=== PATIENT | female | born 1960 | race Caucasian/White ===

== ENCOUNTER 2019-06-15 13:05 | Inpatient (IN) ==
[2019-06-15] MEDS ORDERED: ACETAMINOPHEN 325 MG TAB PO PRN (14:26)
--- NOTE | 2019-06-15 15:04 | XRay Report ---
XR chest 1V portable HISTORY: 58 years-old Female new admission COMPARISON: CT abdomen and pelvis 04/05/2019, chest radiograph 05/27/2006 TECHNIQUE: Portable AP view of the chest FINDINGS: Cardiomediastinal and hilar silhouettes are within normal limits. No pneumothorax, pleural effusion, focal airspace consolidation or overt pulmonary edema. Bones of the chest appear grossly intact. IMPRESSION: No acute process. The above report was generated using voice recognition software. It may contain grammatical, syntax o r spelling errors. Electronically signed by: Ron Bauer M.D. 06/15/2019 3:02 PM
[2019-06-15 15:22] LABS: Basophils # (auto) 0.03 K/uL (0-0.2); Basophils % (auto) 0.5 %; Eosinophils # (auto) 0.11 K/uL (0-0.5); Eosinophils % (auto) 1.7 %; Hematocrit (blood only) 41.5 % (37-47); Hemoglobin 13.9 g/dL (12.0-16.0); Immature Granulocytes # (auto) 0.01 K/uL (0.00-0.02); Immature Granulocytes % (auto) 0.2 %; Lymphocytes # (auto) 2.17 K/uL (1.2-3.4); Lymphocytes % (auto) 33.5 %; Mean Corpuscular Volume 90.4 fL (80-100); Mean Platelet Volume 10.6 fL (7.4-10.4); Monocytes # (auto) 0.39 K/uL (0.11-0.59); Neutrophils # (auto) 3.76 K/uL (1.4-6.5); Neutrophils % (auto) 58.1 %; Platelet Count 194 K/uL (130-400); RDW Coefficient of Variation 14.2 % (11.5-14.5); RDW Standard Deviation 46.7 fL (36.4-46.3); Red Blood Count 4.59 M/uL (4.2-5.4); White Blood Count 6.47 K/uL (4.8-10.8)
[2019-06-15 15:31] LABS: Mean Corpuscular Hgb Conc 33.5 g/dL (32-36)
[2019-06-15 15:39] LABS: Blood Urea Nitrogen 20 mg/dl (7-18); Calcium 9.4 mg/dl (8.5-10.1); Carbon Dioxide 27 mmol/L (21-32); Chloride 110 mmol/L (98-107); Est GFR (Non-African American) 66.4; Glucose 104 mg/dl (70-99); Potassium 3.6 mmol/L (3.5-5.1); Sodium 143 mmol/L (136-145)
[2019-06-15] MEDS ORDERED: VANCOMYCIN CONSULT ACTIVE PRN (15:48)
--- NOTE | 2019-06-15 16:00 | History & Physical Report ---
Date of Service June 15, 2019 Assessment & Plan (1) Recurrent UTI (urinary tract infection): (2) Multiple drug allergies: 58 yo F with PMHx of Asthma, HLD, IBS, and multiple drug allergies who presents today from home for IV antibiotics for Enterococcus UTI in recent outpatient urine culture which showed sensitivity to ampicillin, macrobid, and vancomycin, was resistant to tetracycline. Pt is allergic to both ampicillin and macrobid and so her PCP sent her to the hospital for a direct admission for IV vancomycin. She has a somewhat complicated recent PMHx in that in March she went for an outpatient hysteroscopy and had subsequent uterine wall perforation and retroperitoneal hematoma and was transferred to [facility] in [place] for an overnight stay. Since then she has felt intermittent dysuria, fevers, chills, fatigue and was treated 05/19/19 with Levaquin 500 mg daily for 7 days for sinusitis and UTI-- she reports this improved symptoms somewhat but was still having dysuria. Her urine culture at that time showed enterococcus species with same sensitive as above so after completing Levaquin her PCP put her on Macrobid. Unfortunately she was unable to tolerate the Macrobid as she had "rash/hives, trouble seeing, and pain in kidney area". She had a repeat urine culture 06/08/19 which again showed 10,000-100,000 colonies of the enterococcus species and her PCP asked her to be seen in the hospital for IV antibiotics. She refused initially so PCP made F/U with [employer] who confirmed her allergies to PCN, Ampicillin, Macrobid. Given this they highly recommended pt come to the hospital for IV vancomycin and she agreed. Pt reports she feels she has had this infection for the last two months and has had intermittent subjective fevers, chills, has been fatigued. Over the last two days has developed some dysuria and lower abdominal pain/suprapubic pain. She has still been able to go to work daily but feels more run down than usual. She denies active chest pain, SOB, headaches, fevers, chills, back or flank pain, diarrhea, constipation, hematuria. She also notes unrelated to her UTI symptoms a recurrent yeast rash under her R breast and around umbilicus-- she uses nystatin for this PRN at home. Denies additional complaints at this time. Afebrile, no leukocytosis, labs otherwise unremarkable. CXR: no acute process - Urine Culture: pending - Blood Cultures: pending - Start Vancomycin IV - Normal Diet - CBC, BMP AM labs - ID consulted-- spoke with Dr. Pardo, he will see patient (3) Yeast infection of the skin: - Mild, ok to use nystatin cream BID to affected areas under R breast and near umbilicus (4) Asthma: - Stable - Only requires albuterol if she comes into contact with allergens VTE Prophylaxis: Lovenox Pt follows with Dr. Garcia for routine care. Patient seen in coordination with Dr. Vargas. See addendum for further details. History of Present Illness Chief Complaint: UTI Primary Care Provider: Prema Garcia MD 58 yo F with PMHx of Asthma, HLD, IBS, and multiple drug allergies who presents today from home for IV antibiotics for Enterococcus UTI in recent outpatient urine culture which showed sensitivity to ampicillin, macrobid, and vancomycin, was resistant to tetracycline. Pt is allergic to both ampicillin and macrobid and so her PCP sent her to the hospital for a direct admission for IV vancomycin. She has a somewhat complicated recent PMHx in that in March she went for an outpatient hysteroscopy and had subsequent uterine wall perforation and retroperitoneal hematoma and was transferred to [facility] in [place] for an overnight stay. Since then she has felt intermittent dysuria, fevers, chills, fatigue and was treated 05/19/19 with Levaquin 500 mg daily for 7 days for sinusitis and UTI-- she reports this improved symptoms somewhat but was still having dysuria. Her urine culture at that time showed enterococcus species with same sensitive as above so after completing Levaquin her PCP put her on Macrobid. Unfortunately she was unable to tolerate the Macrobid as she had "rash/hives, trouble seeing, and pain in kidney area". She had a repeat urine culture 06/08/19 which again showed 10,000-100,000 colonies of the enterococcus species and her PCP asked her to be seen in the hospital for IV antibiotics. She refused initially so PCP made F/U with [employer] who confirmed her allergies to PCN, Ampicillin, Macrobid. Given this they highly recommended pt come to the hospital for IV vancomycin and she agreed. Pt reports she feels she has had this infection for the last two months and has had intermittent subjective fevers, chills, has been fatigued. Over the last two days has developed some dysuria and lower abdominal pain/suprapubic pain. She has still been able to go to work daily but feels more run down than usual. She denies active chest pain, SOB, headaches, fevers, c hills, back or flank pain, diarrhea, constipation, hematuria. She also notes unrelated to her UTI symptoms a recurrent yeast rash under her R breast and around umbilicus-- she uses nystatin for this PRN at home. Denies additional complaints at this time. Allergies Allergy/AdvReac Type Severity Reaction Status Date / Time aspirin Allergy Intermediate Vomiting Verified 04/05/19 12:57 Iodinated Contrast- Oral and Allergy Intermediate flushing Verified 06/15/19 14:44 IV Dye nitrofurantoin Allergy Intermediate Rash Verified 06/15/19 14:44 [From Macrobid] Penicillins Allergy Intermediate Unknown Verified 06/15/19 20:12 diphenhydramine Allergy Mild Rash Verified 06/15/19 14:44 omeprazole [From Prilosec] Allergy Mild Rash Verified 06/15/19 14:44 Cephalosporins Allergy Unknown Unknown Unverified 04/05/19 12:57 amoxicillin [From Augmentin] Allergy Flushing Verified 06/15/19 14:44 ampicillin Allergy Unknown Verified 06/15/19 20:12 clavulanic acid Allergy Flushing Verified 06/15/19 14:44 [From Augmentin] vancomycin Allergy Rash Verified 06/15/19 20:12 SULFA,RHINOCORT,CELEBREX,SINGULAIR,STEROIDS Allergy Unknown Unknown Uncoded 04/05/19 12:57 Home Medications Home Medications Medication Instructions Recorded Confirmed Type albuterol sulfate [ProAir HFA] 2 puff INHALATION Q4H PRN 06/15/19 06/15/19 History fluticasone propionate [Flonase 2 spray INTRANASAL DAILY 06/15/19 06/15/19 History Allergy Relief] nystatin 1 applic TOPICAL UD 06/15/19 06/15/19 History Past Med/Surg History Medical History DVT (deep venous thrombosis) (Resolved) Surgical History Hx of tonsillectomy (Resolved) Family History Other No significant family history Social History Communication Ability: Effective Valet Runner Required: No Beliefs That Will Affect Care: None marital status: Current Living Situation: Spouse and Family Current Living Situation Comment: recent surgery Other Information That Helps Us Care for You: No Feels Safe at Home: Yes Safety Concerns: Feels Safe At This Time Smoking Status: Former smoker Hx Alcohol Use: No Hx Substance Use: No Review of Systems Review of Systems: A total of 10 systems were reviewed and otherwise negative unless noted in the HPI or below: []. Physical Exam Physical Exam: GENERAL: alert, healthy, no distress, well nourished and well developed, resting comfortably in bed, speaking in full sentences without difficulty HEAD: Normocephalic, atraumatic EYES: PERRL, EOMI, Conjunctiva are pink and non-injected, sclera clear EARS: External ears normal, Canals clear, TM's clear with good cone of light NOSE: no purulent discharge, no sinus tenderness, no mucosal erythema or edema OROPHARYNX: no exudate, no erythema, lips, buccal mucosa, and tongue normal and mucous membranes are moist NECK: supple, no adenopathy HEART: regular rate & rhythm, no murmurs and no gallops, no edema LUNGS: clear to auscultation bilaterally, no wheezing, rales or rhonchi ABDOMEN: abdomen soft, normal bowel sounds, no masses or organomegaly, no rebound or guarding, no bladder distention identified and no bruits, + suprapubic tenderness, + R sided CVAT SKIN: skin color, texture, turgor are normal, mild erythematous patch under R breast and mild erythema near umbilicus, no drainage, bleeding, signs of secondary bacterial infection NEURO: alert & oriented x 3 with fluent speech, no focal motor/sensory deficits Results & Data Vital Signs (Past 12 Hours) Vital Signs Temp Pulse Resp BP Pulse Ox 06/15/19 15:13 37 C 93 H 18 156/97 H 95 Laboratory Results Short CBC 06/15/19 Range/Units 15:03 WBC 6.47 (4.8-10.8) K/uL Hgb 13.9 (12.0-16.0) g/dL Hct 41.5 (37-47) % Plt Count 194 (130-400) K/uL [facility] 06/15/19 15:03 Sodium 143 Potassium 3.6 Chloride 110 H Carbon Dioxide 27 BUN 20 H Creatinine 0.94 Glucose 104 H Calcium 9.4 Diagnostic Findings Chest Xray: No acute process ECG Rate (beats per minute): 88 Rhythm: normal sinus Code Status & VTE Plan Code Status FULL CODE VTE Prophylaxis Plan VTE Prophylaxis will be ordered: Yes Supervising Physician Co-Signing Physician Notes I have seen and examined the patient and have discussed the case with the provider above. I agree with the assessment and plan as stated with the following exceptions. 58 yo F with UTI symptoms for 1-2 months presents as a direct admission from the clinic. Workup has revealed enterococcus UTI, and she is unable to take multiple antibioitics secondary to allergies. Her deliverer food and PCP have recommended vancomycin so she was admitted for this today. She is not septic, but is still symptomatic with incomplete voiding and dysuria. She denies fevers but reports chills. She denies GI symptoms. She has been eating but has some nausea with it. Physical exam reveals a hemodynamically stable and afebrile patient in no acute distress. Skin is warm and dry. Heart and lung exam is normal. Abdomen exam reveals TTP in LLQ> suprapubic area and she has bilateral CVA tenderness. She is mentating clearly and ambulating independently. WBC is normal, kidney function is normal. A repeat UA/UCx has been ordered and blood cultures were ordered. Assessment: (1) acute pyelonephritis 2/2 enterococcus, (2) multiple drug allergies, (3) body candidiasis. Agree with plan to give vancomycin, however, she had a reaction after 125/500cc were infused which included red streaking down her forehead, rash on her cheeks, ears burning and head pruritis. The vanc was stopped, however, she declined any antihistamines again based on a prior drug reaction. Her UA came back clear and trying again with Daptomycin did not seem reasonable with the higher risk of reaction. Would prefer to discuss the case with ID in the morning. Pyridium was started for the dysuria. In light of recent events and known retroperitoneal hemorrhage in March s/p uterine rupture, a CT a/p was performed. This did not reveal any new acute intraabdominal issues, and did mention the hematomas were resolving. This may explain the residual CVA tenderness and suprapubic/"intestinal" discomfort she is feeling. Would await blood cultures in light of chills, and would discuss the need for any further antibiotics with ID in the morning. Cont pyridium. DO Sam
[2019-06-15] MEDS ORDERED: NYSTATIN CR 15 GM TUBE EXT SCH (16:30)
[2019-06-15] MEDS ORDERED: ONDANSETRON INJ 2 MG/ML 2 ML VIAL IV PRN (18:26)
[2019-06-15] MEDS ORDERED: ACETAMINOPHEN SOL 650 MG/20.3 ML UDC PO PRN (18:26)
[2019-06-15] MEDS ORDERED: VANCOMYCIN HCL 2,500 MG in SODIUM CHLORIDE 0.9% 500 ML IV SCH (18:30)
[2019-06-15 18:37] LABS: Appearance Urine Clear (Clear); Bilirubin Urine Negative (Negative); Blood Urine Negative (Negative); Color Urine Yellow; Glucose Urine UA Negative (Negative); Ketones Urine Negative (Negative); Leukocyte Esterase Urine Negative (Negative); Nitrite Urine Negative (Negative); Protein Urine Negative (Negative); Specific Gravity Urine 1.019 (1.000-1.030); Urobilinogen Urine Negative (Negative); pH Urine 5.5 (4.5-7.5)
[2019-06-15] MEDS: TERBINAFINE CR 30 GM TUBE EXT SCH (20:49)
[2019-06-15] MEDS ORDERED: PHENAZOPYRIDINE HCL 100 MG TAB PO ONE (21:15)
--- NOTE | 2019-06-15 22:27 | CT Scan Report ---
CT OF THE ABDOMEN AND PELVIS WITHOUT CONTRAST CLINICAL HISTORY: CVA tend, bladder pain, h/o uterine rupture COMPARISON STUDY: CT of the abdomen and pelvis April 05, 2019. TECHNIQUE: Axial images of the abdomen and pelvis were obtained without IV contrast. Images were revi ewed in the axial, sagittal, and coronal planes. Automated exposure control was utilized for the talon dy. A dose lowering technique was utilized adhering to the principles of ALARA. FINDINGS: Lung bases are unremarkable. No pneumatosis, free air or portal venous gas is present. No r enal, ureteral or bladder calculi are present. There is no hydronephrosis or hydroureter. Evaluation of the abdomen and pelvis is suboptimal on this unenhanced exam. The liver, spleen, adrenal glands an d pancreas are normal. The appendix is normal. Note is made of a 4 cm hypodense collection anterior t o the right psoas muscle. There is mild adjacent infiltration. In addition, there is a similar-appear ing 3.9 cm hypodensity within the right hemipelvis. When correlating with CT of April 05, 2019, these likely reflect resolving hematomas which have markedly decreased in size. No suspicious osseous lesio n is noted. There is no lymphadenopathy. IMPRESSION: 1. No acute process within the abdomen or pelvis on unenhanced exam. 2. No urinary calculi or hydronephrosis. 3. 4 cm right lower quadrant hypodense collection and a 3.9 cm hypodensity within the right hemipelvi s. When correlating with prior CT of April 05, 2019, these likely reflect resolving hematomas which petersen ve markedly decreased in size. Continued imaging follow to ensure complete resolution is recommended. Trace adjacent infiltration. Electronically signed by: Shai Leon M.D. 06/15/2019 10:26 PM
[2019-06-16 07:10] LABS: Hematocrit (blood only) 41.1 % (37-47); Mean Corpuscular Hgb Conc 34.1 g/dL (32-36); Mean Corpuscular Volume 89.5 fL (80-100); Mean Platelet Volume 10.3 fL (7.4-10.4); Platelet Count 187 K/uL (130-400); RDW Coefficient of Variation 14.2 % (11.5-14.5); RDW Standard Deviation 46.8 fL (36.4-46.3); Red Blood Count 4.59 M/uL (4.2-5.4)
[2019-06-16 07:19] LABS: Prothrombin Time 10.2 Seconds (9.0-12.0)
[2019-06-16 07:43] LABS: BUN Creatinine Ratio 18.8 (10-20); Calcium 8.7 mg/dl (8.5-10.1); Creatinine Clr Calc Pharmacy 78.2 ml/min; Est GFR (Non-African American) 68.2; Potassium 3.8 mmol/L (3.5-5.1)
[2019-06-16] MEDS: PHENAZOPYRIDINE HCL 100 MG TAB PO SCH ×3 (08:45→21:05)
[2019-06-16] MEDS: TERBINAFINE CR 30 GM TUBE EXT SCH ×3 (08:46→21:06)
[2019-06-16] MEDS ORDERED: ACETAMINOPHEN SOLN 500 MG/15.62 ML UDP PO PRN (08:48)
[2019-06-16] MEDS: NYSTATIN POWDER 15GM BTL EXT PRN ×2 (08:54→21:07)
[2019-06-16] MEDS ORDERED: ALUMINUM/MAGNESIUM SUSP 30 ML UDC PO PRN (08:56)
[2019-06-16] MEDS: ENOXAPARIN INJ 40 MG/0.4 ML SYR SQ SCH ×2 (08:56→11:28)
--- NOTE | 2019-06-16 09:44 | Infectious Disease Consult ---
Date of Consultation June 16, 2019 Assessment & Plan (1) Recurrent UTI (urinary tract infection): Patient with ongoing urinary tract infection with enterococcus, with multiple drug allergies, and what sounds like "red man" syndrome with vancomycin infusion. Patient will be changed to IV daptomycin 10 mg/kg daily, will likely need in the range of 2 weeks of therapy. Will watch closely for any adverse reaction. Will follow. (2) Enterococcal infection: (3) Multiple drug allergies: History of Present Illness Reason for Consultation: Multiple drug allergies and multidrug-resistant UTIs Attending Physician: Mauro Lovett MD History of Present Illness 58-year-old female with history of asthma, hyperlipidemia, irritable bowel syndrome, who earlier this year suffered complications following hysteroscopy with uterine perforation. Required short hospital stay for this complication. Subsequently developed symptoms of urinary tract infection, and was given antibiotics without much improvement. Symptoms have continued with dysuria and mild abdominal pain along with low-grade fevers, repeat urine culture has grown Enterococcus faecalis. Patient has multiple antibiotic allergies, has been recently tested by allergy with documentation of allergies, and was started empirically on IV vancomycin. She developed what sounds like typical "red man" syndrome following infusion. Still with urinary complaints, no current fever. No abdominal pain at present. Allergies Allergy/AdvReac Type Severity Reaction Status Date / Time Iodinated Contrast- Oral and Allergy Intermediate flushing Verified 06/15/19 14:44 IV Dye nitrofurantoin Allergy Intermediate Rash Verified 06/15/19 14:44 [From Macrobid] Penicillins Allergy Intermediate Unknown Verified 06/15/19 20:12 amoxicillin [From Augmentin] Allergy Mild Flushing Verified 06/16/19 07:35 clavulanic acid Allergy Mild Flushing Verified 06/16/19 07:35 [From Augmentin] diphenhydramine Allergy Mild Rash Verified 06/15/19 14:44 omeprazole [From Prilosec] Allergy Mild Rash Verified 06/15/19 14:44 vancomycin Allergy Mild Rash Verified 06/16/19 07:35 ampicillin Allergy Unknown Unknown Verified 06/16/19 07:35 budesonide Allergy Unknown Unknown Verified 06/16/19 07:35 [From Rhinocort Aqua] celecoxib Allergy Unknown Unknown Verified 06/16/19 07:37 Cephalosporins Allergy Unknown Unknown Unverified 04/05/19 12:57 montelukast Allergy Unknown Unknown Verified 06/16/19 07:36 Sulfa (Sulfonamide Allergy Unknown Unknown Verified 06/16/19 07:35 Antibiotics) aspirin AdvReac Intermediate Vomiting Verified 06/16/19 07:35 Home Medications Home Medications Medication Instructions Recorded Confirmed Type albuterol sulfate [ProAir HFA] 2 puff INHALATION Q4H PRN 06/15/19 06/15/19 History fluticasone propionate [Flonase 2 spray INTRANASAL DAILY 06/15/19 06/15/19 History Allergy Relief] nystatin 1 applic TOPICAL UD 06/15/19 06/15/19 History Patient History Medical History DVT (deep venous thrombosis) (Resolved) Surgical History Hx of tonsillectomy (Resolved) Family History Other No significant family history Social History Communication Ability: Effective Bulk Pigment Reducer Required: No Beliefs That Will Affect Care: None marital status: Current Living Situation: Spouse and Family Current Living Situation Comment: recent surgery Other Information That Helps Us Care for You: No Feels Safe at Home: Yes Safety Concerns: Feels Safe At This Time Smoking Status: Former smoker Hx Alcohol Use: No Hx Substance Use: No Review of Systems Review of Systems: All systems reviewed & are unremarkable except as noted in HPI & below Physical Exam Constitutional: WD/WN, vitals as above comfortable; no acute distress Eyes: PERRL, conjunctivae normal, anicteric sclerae ENMT: external ear and nose normal, oropharynx normal Neck: trachea midline, no thyromegaly neck nontender Respiratory: normal respiratory effort, lungs clear to auscultation normal percussion; does not use accessory muscles Cardiovascular: Rate/Rhythm: regular rate and regular rhythm Heart Sounds: normal S1 and normal S2; no gallop, no murmur and no cardiac rub Vessels: normal peripheral pulses; no JVD Gastrointestinal (Abdomen): normal bowel sounds, soft, nontender, no hepatosplenomegaly Musculoskeletal: no cyanosis or clubbing, extremities motor strength 5/5 Spine: thoracic spine normal to inspection and lumbar spine normal to inspection; no cervical spinal tenderness Skin: no rashes, warm and dry normal turgor; no lesions Neurologic: patellar DTR's 2+ bilat, sensation intact no focal motor deficits Psychiatric: A+Ox3, euthymic affect Orientation: cooperative Lymphatic: no cervical or axillary lymphadenopathy no inguinal lymphadenopathy Results & Data Vital Signs (Past 12 Hours) Vital Signs Temp Pulse Pulse Resp BP BP Pulse Ox 06/16/19 07:17 36.7 C 79 18 138/91 95 06/16/19 03:51 36.9 C 76 18 127/85 95 06/16/19 00:00 86 06/15/19 23:35 36.9 C 83 18 127/85 96 Laboratory Results Short CBC 06/15/19 06/16/19 Range/Units 15:03 06:46 WBC 6.47 6.00 (4.8-10.8) K/uL Hgb 13.9 14.0 (12.0-16.0) g/dL Hct 41.5 41.1 (37-47) % Plt Count 194 187 (130-400) K/uL BMP 06/15/19 06/16/19 15:03 06:46 Sodium 143 140 Potassium 3.6 3.8 Chloride 110 H 108 H Carbon Dioxide 27 24 BUN 20 H 17 Creatinine 0.94 0.92 Glucose 104 H 102 H Calcium 9.4 8.7 Urine 06/15/19 Range/Units Unknown Urine Color Yellow Urine Appearance Clear (Clear) Urine pH 5.5 (4.5-7.5) Ur Specific [place] 1.019 (1.000-1.030) Urine Protein Negative (Negative) Urine Glucose (UA) Negative (Negative) Diagnostic Findings CT OF THE ABDOMEN AND PELVIS WITHOUT CONTRAST CLINICAL HISTORY: CVA tend, bladder pain, h/o uterine rupture COMPARISON STUDY: CT of the abdomen and pelvis April 05, 2019. TECHNIQUE: Axial images of the abdomen and pelvis were obtained without IV contrast. Images were reviewed in the axial, sagittal, and coronal planes. Automated exposure control was utilized for the study. A dose lowering technique was utilized adhering to the principles of ALARA. FINDINGS: Lung bases are unremarkable. No pneumatosis, free air or portal venous gas is present. No renal, ureteral or bladder calculi are present. There is no hydronephrosis or hydroureter. Evaluation of the abdomen and pelvis is subopti mal on this unenhanced exam. The liver, spleen, adrenal glands and pancreas are normal. The appendix is normal. Note is made of a 4 cm hypodense collection anterior to the right psoas muscle. There is mild adjacent infiltration. In addition, there is a similar-appearing 3.9 cm hypodensity within the right hemipelvis. When correlating with CT of April 05, 2019, these likely reflect resolving hematomas which have markedly decreased in size. No suspicious osseous lesion is noted. There is no lymphadenopathy. IMPRESSION: 1. No acute process within the abdomen or pelvis on unenhanced exam. 2. No urinary calculi or hydronephrosis. 3. 4 cm right lower quadrant hypodense collection and a 3.9 cm hypodensity within the right hemipelvis. When correlating with prior CT of April 05, 2019, these likely reflect resolving hematomas which have markedly decreased in size. Continued imaging follow to ensure complete resolution is recommended. Trace adjacent infiltration. Electronically signed by: Shai Leon M.D. 06/15/2019 10:26 PM Dictated: 06/15/19 2219 Transcribed: 06/15/19 2219 PG Care Time/CCT Total # of Minutes Spent Total Time Spent with Patient: Total time spent is greater than 50% in coordination of care (as documented) at patient's floor/unit and/or counseling patient:
[2019-06-16] MEDS ORDERED: DAPTOmycin 500 MG VIAL IV SCH (09:45)
[2019-06-16] MEDS: DAPTOmycin 750 MG in SYRINGE 0 ML IV SCH (11:28)
--- NOTE | 2019-06-16 18:13 | Hospitalist Progress Note ---
Date of Service June 16, 2019 Assessment & Plan (1) Urinary tract infection: UTI Outpatient urine culture grew Enterococcus sp. Multiple antibiotic allergies; no oral options Received IV vancomycin last night, but developed flushing / rash. Seen by ID. Rx with IV daptomycin recommended. Will need midline or PICC if tolerated. Asthma Pulmonary status stable. VTE prophylaxis SQ enoxaparin. Ambulate. Disposition Anticipated discharge to home. Internal Medicine follow-up with Dr. Prema Garcia. Subjective Recheck for UTI. Patient seen in their room around 1520. Admitted for management of UTI with Enteroccus sp. not amenable to oral therapy. Received IV vancomycin last night, but experienced severe flushing / rash. Less bladder discomfort since starting Pyridium. No apparent gross hematuria. No fever or chills. Review of Systems: Constitutional- no fever. Cardiac- no chest pain. Pulmonary- no cough or SOB. GI- + nausea; no vomiting, diarrhea, melena, hematochezia. - as noted above. Otherwise, as noted above. Physical Exam Constitutional: no acute distress Respiratory: no respiratory distress Auscultation: lungs clear to auscultation bilaterally Cardiovascular: Rate/Rhythm: regular rate and regular rhythm Heart Sounds: no gallop, no murmur and no cardiac rub Vessels: no JVD Extremities: no calf tenderness and no edema Gastrointestinal (Abdomen): normal bowel sounds, soft, nontender, no hepatosplenomegaly Skin: no rashes, warm and dry Psychiatric: Orientation: alert and oriented x 3 Results & Data Vital Signs (Past 12 Hours) Vital Signs Temp Pulse Pulse Resp BP BP Pulse Ox 06/16/19 14:47 82 06/16/19 14:39 37.1 C 81 18 130/86 97 06/16/19 11:34 37.2 C 78 18 148/92 H 95 06/16/19 08:30 69 06/16/19 07:17 36.7 C 79 18 138/91 95 Laboratory Results 06/16/19 06:46 06/16/19 06:46 Microbiology 06/15/19 15:13 Blood Aerobic Blood Culture - Preliminary No growth in Aerobic bottle after 24 hours. 06/15/19 15:13 Blood Anaerobic Blood Culture - Preliminary No growth in Anaerobic bottle after 24 hours. 06/15/19 15:03 Blood Aerobic Blood Culture - Preliminary No growth in Aerobic bottle after 24 hours. 06/15/19 15:03 Blood Anaerobic Blood Culture - Preliminary No growth in Anaerobic bottle after 24 hours. 06/15/19 Unknown Urine,Clean Catch Urine Culture - Preliminary Streptococcus species
[2019-06-16] MEDS: LACTOBACILLUS ACIDOPHILUS (FLORANEX) TAB PO SCH (21:05)
[2019-06-17] MEDS: LACTOBACILLUS ACIDOPHILUS (FLORANEX) TAB PO SCH ×4 (08:58→21:09)
[2019-06-17] MEDS: PHENAZOPYRIDINE HCL 100 MG TAB PO SCH ×3 (08:58→21:10)
[2019-06-17] MEDS: TERBINAFINE CR 30 GM TUBE EXT SCH ×2 (08:59→21:09)
[2019-06-17] MEDS: ENOXAPARIN INJ 40 MG/0.4 ML SYR SQ SCH (08:59)
[2019-06-17] MEDS: DAPTOmycin 750 MG in SYRINGE 0 ML IV SCH (10:32)
--- NOTE | 2019-06-17 17:00 | Hospitalist Progress Note ---
Date of Service June 17, 2019 Assessment & Plan (1) Urinary tract infection: UTI Outpatient urine culture grew Enterococcus sp. Multiple antibiotic allergies; no oral options Received IV vancomycin last night, but developed flushing / rash. Seen by ID. Urine culture from 06/15 growing Enterococcus faecalis sensitive to daptomycin. Rx with IV daptomycin x 14 days recommended. IV team asked to place US guided IV for outpatient therapy. Asthma Pulmonary status stable. VTE prophylaxis SQ enoxaparin. Ambulate. Disposition Anticipated discharge to home. Consult Case Management regarding outpatient antibiotic therapy. Internal Medicine follow-up with Dr. Prema Garcia. Subjective Recheck for UTI. Patient seen in their room around 1450. Received IV daptomycin without side effects. Less bladder discomfort since starting Pyridium. Concerned about urine appearing foamy. No apparent gross hematuria. No fever or chills. Review of Systems: Constitutional- no fever. Cardiac- no chest pain. Pulmonary- no cough or SOB. GI- + nausea; no vomiting, diarrhea, melena, hematochezia. - as noted above. Otherwise, as noted above. Physical Exam Constitutional: no acute distress Respiratory: no respiratory distress Auscultation: lungs clear to auscultation bilaterally Cardiovascular: Rate/Rhythm: regular rate and regular rhythm Heart Sounds: no gallop, no murmur and no cardiac rub Vessels: no JVD Extremities: no calf tenderness and no edema Gastrointestinal (Abdomen): normal bowel sounds, soft, nontender, no hepatosplenomegaly Skin: no rashes, warm and dry Psychiatric: Orientation: alert and oriented x 3 Results & Data Vital Signs (Past 12 Hours) Vital Signs Temp Pulse Resp BP Pulse Ox 06/17/19 07:11 36.9 C 83 16 116/81 98 Diagnostic Findings 06/16/19 06:46 06/16/19 06:46 Microbiology 06/15/19 15:13 Blood Aerobic Blood Culture - Preliminary No growth in Aerobic bottle after 48 hours. 06/15/19 15:13 Blood Anaerobic Blood Culture - Preliminary No growth in Anaerobic bottle after 48 hours. 06/15/19 15:03 Blood Aerobic Blood Culture - Preliminary No growth in Aerobic bottle after 48 hours. 06/15/19 15:03 Blood Anaerobic Blood Culture - Preliminary No growth in Anaerobic bottle after 48 hours. 06/15/19 Unknown Urine,Clean Catch Urine Culture - Final Enterococcus faecalis
[2019-06-17 18:08] LABS: Appearance Urine Clear (Clear); Bacteria Urine Automated Negative (Negative); Bilirubin Urine Negative (Negative); Blood Urine Negative (Negative); Cast Urine Automated 0 /lpf (0-5); Color Urine Orange; Epithelial Cell Urine Auto >30 /lpf (0-5); Glucose Urine UA Negative (Negative); Ketones Urine Negative (Negative); Leukocyte Esterase Urine Trace (Negative); Nitrite Urine Positive (Negative); Protein Urine Negative (Negative); RBC Urine Automated 0-4 /hpf (0-4); Specific Gravity Urine 1.012 (1.000-1.030); Urobilinogen Urine Negative (Negative)
[2019-06-17] MEDS: NYSTATIN POWDER 15GM BTL EXT PRN (21:08)
[2019-06-18] MEDS: ENOXAPARIN INJ 40 MG/0.4 ML SYR SQ SCH (09:46)
[2019-06-18] MEDS: LACTOBACILLUS ACIDOPHILUS (FLORANEX) TAB PO SCH ×2 (09:46→13:19)
[2019-06-18] MEDS: TERBINAFINE CR 30 GM TUBE EXT SCH (09:46)
[2019-06-18] MEDS: PHENAZOPYRIDINE HCL 100 MG TAB PO SCH ×2 (09:47→13:19)
[2019-06-18] MEDS: DAPTOmycin 750 MG in SYRINGE 0 ML IV SCH (09:47)
--- NOTE | 2019-06-18 13:53 | Hospitalist Progress Note ---
Date of Service June 18, 2019 Assessment & Plan (1) Urinary tract infection: UTI Outpatient urine culture grew Enterococcus sp. Multiple antibiotic allergies; no oral options Received IV vancomycin last night, but developed flushing / rash. Seen by ID. Urine culture from 06/15 growing Enterococcus faecalis sensitive to daptomycin. Rx with IV daptomycin x 14 days recommended. IV team placed US guided IV for outpatient therapy. Asthma Pulmonary status stable. VTE prophylaxis SQ enoxaparin. Ambulate. Disposition Discharge to home. Case Management assisted with arrangements for outpatient antibiotic therapy. Internal Medicine follow-up with Dr. Prema Garcia. Subjective Recheck for UTI. Patient seen in their room around 1030. Receiving IV daptomycin without rash or other side effects. No dysuria, gross hematuria, or flank pain. No fever or chills. Physical Exam Constitutional: no acute distress Respiratory: no respiratory distress Auscultation: lungs clear to auscultation bilaterally Cardiovascular: Rate/Rhythm: regular rate and regular rhythm Heart Sounds: no gallop, no murmur and no cardiac rub Vessels: no JVD Extremities: no calf tenderness and no edema Gastrointestinal (Abdomen): normal bowel sounds, soft, nontender, no hepatosplenomegaly Skin: no rashes, warm and dry Psychiatric: Orientation: alert and oriented x 3 Results & Data Vital Signs (Past 12 Hours) Vital Signs Temp Pulse Resp BP Pulse Ox 06/18/19 07:09 36.6 C 89 16 125/85 96 Laboratory Results Microbiology 06/15/19 15:13 Blood Aerobic Blood Culture - Preliminary No growth in Aerobic bottle after 48 hours. 06/15/19 15:13 Blood Anaerobic Blood Culture - Preliminary No growth in Anaerobic bottle after 48 hours. 06/15/19 15:03 Blood Aerobic Blood Culture - Preliminary No growth in Aerobic bottle after 48 hours. 06/15/19 15:03 Blood Anaerobic Blood Culture - Preliminary No growth in Anaerobic bottle after 48 hours. 06/15/19 Unknown Urine,Clean Catch Urine Culture - Final Enterococcus faecalis
--- NOTE | 2019-06-18 14:46 | Infectious Disease Progress Nt ---
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 Patient will be continued on IV daptomycin 10 mg/kg daily, will need 2 weeks of therapy. Will watch closely for any adverse reaction. Will follow. (2) Enterococcal infection: (3) Multiple drug allergies: Subjective Patient seen in follow-up for enterococcal urinary tract infection. Continues to tolerate daptomycin. Remains afebrile. Dysuria slightly better. Review of Systems Review of Systems: All systems reviewed & are unremarkable except as noted in HPI & below Physical Exam Constitutional: WD/WN, vitals as above comfortable; no acute distress Eyes: PERRL, conjunctivae normal, anicteric sclerae ENMT: external ear and nose normal, oropharynx normal Neck: trachea midline, no thyromegaly neck nontender Respiratory: normal respiratory effort, lungs clear to auscultation normal percussion; does not use accessory muscles Cardiovascular: Rate/Rhythm: regular rate and regular rhythm Heart Sounds: normal S1 and normal S2; no gallop, no murmur and no cardiac rub Vessels: normal peripheral pulses; no JVD Gastrointestinal (Abdomen): normal bowel sounds, soft, nontender, no hepatosplenomegaly Musculoskeletal: no cyanosis or clubbing, extremities motor strength 5/5 Spine: thoracic spine normal to inspection and lumbar spine normal to inspection; no cervical spinal tenderness Skin: no rashes, warm and dry normal turgor; no lesions Neurologic: patellar DTR's 2+ bilat, sensation intact no focal motor deficits Psychiatric: A+Ox3, euthymic affect Orientation: cooperative Lymphatic: no cervical or axillary lymphadenopathy no inguinal lymphadenopathy Results & Data Vital Signs (Past 12 Hours) Vital Signs Temp Pulse Resp BP Pulse Ox 06/18/19 07:09 36.6 C 89 16 125/85 96 PG Care Time/CCT Total # of Minutes Spent Total Time Spent with Patient: Total time spent is greater than 50% in coordination of care (as documented) at patient's floor/unit and/or counseling patient:
--- NOTE | 2019-06-19 08:23 | Discharge Summary ---
Date of Service Date of Admission: 06/15/19 Date of Discharge: 06/18/19 Admission HPI Per Admitting Provider 58 yo F with PMHx of Asthma, HLD, IBS, and multiple drug allergies who presents today from home for IV antibiotics for Enterococcus UTI in recent outpatient urine culture which showed sensitivity to ampicillin, macrobid, and vancomycin, was resistant to tetracycline. Pt is allergic to both ampicillin and macrobid and so her PCP sent her to the hospital for a direct admission for IV vancomycin. She has a somewhat complicated recent PMHx in that in March she went for an outpatient hysteroscopy and had subsequent uterine wall perforation and retroperitoneal hematoma and was transferred to [facility] in [place] for an overnight stay. Since then she has felt intermittent dysuria, fevers, chills, fatigue and was treated 05/19/19 with Levaquin 500 mg daily for 7 days for sinusitis and UTI-- she reports this improved symptoms somewhat but was still having dysuria. Her urine culture at that time showed enterococcus species with same sensitive as above so after completing Levaquin her PCP put her on Macrobid. Unfortunately she was unable to tolerate the Macrobid as she had "rash/hives, trouble seeing, and pain in kidney area". She had a repeat urine culture 06/08/19 which again showed 10,000-100,000 colonies of the enterococcus species and her PCP asked her to be seen in the hospital for IV antibiotics. She refused initially so PCP made F/U with [facility] who confirmed her allergies to PCN, Ampicillin, Macrobid. Given this they highly recommended pt come to the hospital for IV vancomycin and she agreed. Pt reports she feels she has had this infection for the last two m [facility] and has had intermittent subjective fevers, chills, has been fatigued. Over the last two days has developed some dysuria and lower abdominal pain/suprapubic pain. She has still been able to go to work daily but feels more run down than usual. She denies active chest pain, SOB, headaches, fevers, chills, back or flank pain, diarrhea, constipation, hematuria. She also notes unrelated to her UTI symptoms a recurrent yeast rash under her R breast and around umbilicus-- she uses nystatin for this PRN at home. Denies additional complaints at this time. Principal Diagnosis UTI due to Enterococcus faecalis Discharge Data Allergies Allergy/AdvReac Type Severity Reaction Status Date / Time Iodinated Contrast- Oral and Allergy Intermediate flushing Verified 06/15/19 14:44 IV Dye nitrofurantoin Allergy Intermediate Rash Verified 06/15/19 14:44 [From Macrobid] Penicillins Allergy Intermediate Unknown Verified 06/15/19 20:12 amoxicillin [From Augmentin] Allergy Mild Flushing Verified 06/16/19 07:35 clavulanic acid Allergy Mild Flushing Verified 06/16/19 07:35 [From Augmentin] diphenhydramine Allergy Mild Rash Verified 06/15/19 14:44 omeprazole [From Prilosec] Allergy Mild Rash Verified 06/15/19 14:44 vancomycin Allergy Mild Rash Verified 06/16/19 07:35 ampicillin Allergy Unknown Unknown Verified 06/16/19 07:35 budesonide Allergy Unknown Unknown Verified 06/16/19 07:35 [From Rhinocort Aqua] celecoxib Allergy Unknown Unknown Verified 06/16/19 07:37 Cephalosporins Allergy Unknown Unknown Unverified 04/05/19 12:57 montelukast Allergy Unknown Unknown Verified 06/16/19 07:36 Sulfa (Sulfonamide Allergy Unknown Unknown Verified 06/16/19 07:35 Antibiotics) aspirin AdvReac Intermediate Vomiting Verified 06/16/19 07:35 Consultations 06/15/19 15:41 Consult Infectious Diseases Routine 06/18/19 06:08 Consult Case Management - Discharge Planning Routine Ordered Studies 06/15/19 21:15 CT abd pelvis wo con Urgent Hospital Course (1) Urinary tract infection: UTI Outpatient urine culture grew Enterococcus sp. Multiple antibiotic allergies; no oral options Received IV vancomycin last night, but developed flushing / rash. Seen by ID. Urine culture from 06/15 growing Enterococcus faecalis sensitive to daptomycin. Rx with IV daptomycin x 14 days recommended. IV team placed US guided IV for outpatient therapy. Asthma Pulmonary status stable. VTE prophylaxis SQ enoxaparin. Ambulate. Disposition Discharge to home. Case Management assisted with arrangements for outpatient antibiotic therapy. Internal Medicine follow-up with Dr. Prema Garcia. Total Time Total Time Spent Total Time Spent (In Minutes): 35 Discharge Plan Discharge Items Patient Disposition: Home - Home Health Services Reason For Visit: urinary tract infection Discharge Diagnosis: urinary tract infection Condition: Good Discharge Goals: Improve disease control Activity: Resume your previous activity Lifting Comment: as instructed in IV catheter instructions Bathing Comment: as instructed in IV catheter instructions Non-emergency contact: Primary Care Provider and Hospitalist Call non-emergency contact if: your temperature is above 101 Follow-up/Referrals: Prema Garcia MD [Primary Care Provider] - (06/21/2019 1:00 PM Prema Garcia MD) Diet: Regular Addtl Provider Instructions: MEDICATION CHANGES: daptomycin 750 mg IV daily for 11 more days SUMMARY OF TEST RESULTS: urine culture grew a bacterium called Enterococcus faecalis PENDING TEST RESULTS: none RECOMMENDATIONS FOR FOLLOW-UP: Any antibiotic can cause diarrhea, sometimes severe. Probiotics like Lactinex can help. You should have your primary care provider check a stool sample if you have 3 or more loose stools in 24 hours. Home Health nurses will help with IV antibiotic at home. Make certain that they remove IV in your left arm once you are done with the antibiotic. OTHER INSTRUCTIONS: Seek medical attention if you have: * temperature above 101 * chest pain, coughing, or trouble breathing * abdominal pain, nausea, vomiting * diarrhea, dark stools or bloody stools * burning when you urinate or blood in urine * any unanswered questions or concerns Call 911 if symptoms are severe. Please take good care of yourself. Call if you have any questions or problems. You can reach a [facility] hospitalist on duty at [facility] 24 hours a day by calling [phone]. Prescriptions: New daptomycin 500 mg recon soln 750 mg IV DAILY 11 Days Qty: 1 RF: 0 Continued albuterol sulfate [ProAir HFA] 90 mcg/actuation Hfa Aerosol Inhaler 2 puff INHALATION Q4H PRN (Reason: Shortness Of Breath Or Wheezing) RF: 0 nystatin 100,000 unit/gram cream 1 applic topical UD RF: 0 fluticasone propionate [Flonase Allergy Relief] 50 mcg/actuation [place],Suspension 2 spray INTRANASAL DAILY RF: 0 Stand-Alone Forms: My [facility] Discharge Orders: Discharge Order (Routine); Ordered 06/18/19 Ordered By: Mauro Lovett Admission Data Admit Date/Time: 06/15/19 14:41 Attending Provider: Mauro Lovett Admit Provider: Chen Vargas Primary Care Provider: Prema Garcia Other Providers: Abhijit Pardo Service: Medical Other Interventions: Discharge Summary Assessment (RN) Last Done: 06/18/19 15:11 DC Date/Time DO NOT enter until pt leaves facility: 06/18/19 16:45
== END 2019-06-18 16:45 | disposition home health service (06) | DRG 690 ==
LOC: 2W 14:41
DX: E78.5 Hyperlipidemia, unspecified; Z88.2 Allergy status to sulfonamides; J45.909 Unspecified asthma, uncomplicated; Z91.041 Radiographic dye allergy status; T36.8X5A Adverse effect of other systemic antibiotics, initial encounter; Y92.230 Patient room in hospital as the place of occurrence of the external cause; B37.2 Candidiasis of skin and nail; Z88.6 Allergy status to analgesic agent; Z88.1 Allergy status to other antibiotic agents; L27.0 Generalized skin eruption due to drugs and medicaments taken internally; Z88.0 Allergy status to penicillin; Z79.899 Other long term (current) drug therapy; Z87.891 Personal history of nicotine dependence; B95.2 Enterococcus as the cause of diseases classified elsewhere; Z88.8 Allergy status to other drugs, medicaments and biological substances; Z16.29 Resistance to other single specified antibiotic; N10 Acute pyelonephritis